=== PATIENT | female | born 1970 | race American Indian/Alaskan Native ===

== ENCOUNTER 2022-02-07 05:54 | Day surgery (SDC) | payer OTHER ==
--- NOTE | 2022-02-06 13:44 | Short Stay Summary ---
Short Stay Documentation Date of service: 02/07/22 Narrative H&P: Past History : 5 Term Births: 5 Living Children: 5 # 1 Delivery date: 1986 Delivery type: # 2 Delivery type: # 3 Delivery type: # 4 Delivery type: # 5 Delivery type: NUTRITIONIST History Operations: Laparoscopic Hysterectomy (2015) (L) salpingectomy Tubal Ligation (R) salpingectomy for ectopic Umbilcal hernia repair Right inguinal hernia repair (12/2020) Dr. Guerrero Abnormal PAP: negative Infection History HIV Risk Eval: no Hx of STD: None Active Medications (reviewed today): estradiol 0.1 mg/24 hr patch weekly (estradiol) Current Allergies (reviewed today): ASPIRIN (Critical) Past Medical History: Reviewed history from 11/23/2021 and no changes required: Lumbar spinal stenosis/arthritis Past Surgical History: Reviewed history from 10/12/2021 and no changes required: Laparoscopic Hysterectomy (2015) (L) salpingectomy Tubal Ligation (R) salpingectomy for ectopic Umbilcal hernia repair Right inguinal hernia repair (12/2020) Dr. Guerrero Family History Summary: Reviewed history Last on 11/23/2021 and no changes required:02/06/2022 Other Family Member - Has No Family History of Uterine Cancer - Entered On: 10/03/2020 Other Family Member - Has No Family History of Small Bowel Cancer - Entered On: 10/03/2020 Other Family Member - Has No Family History of Ovarvian Cancer - Entered On: 10/03/2020 Other Family Member - Has No Family History of Kidney/Urinary Tract Cancer - Entered On: 10/03/2020 Other Family Member - Has No Family History of Spontaneous DVT-PE - Entered On: 10/03/2020 Other Family Member - Has No Family History of Colon Cancer - Entered On: 10/03/2020 Other Family Member - Has No Family History of Brain Cancer - Entered On: 10/03/2020 Other Family Member - Has No Family History of Breast Cancer - Entered On: 10/03/2020 Other Family Member - Has No Family History of Biliary Tract Cancer - Entered On: 10/03/2020 MGM - Has Family History of Pancreatic Cancer - Entered On: 10/03/2020 MGF - Has Family History of Stomach Cancer - Entered On: 10/03/2020 Social History: Reviewed history from 09/01/2020 and no changes required: Patient is Smoking History: Patient has never smoked. Risk Factors: Smoked Tobacco Use: Never smoker Smokeless Tobacco Use: Never HIV High Risk Behavior: no Exercise: yes Times/wk: 7 Type of Exercise: weight training & free weights Seatbelt Use: 100 % Alcohol Use: no Drug Use: no Physical Exam Appearance: well developed, well nourished, no acute distress Other Exams Lungs: no rales, rhonchi, or wheezes Heart: S1, S2, no murmur, rub, or gallop Genitourinary Exam Adnexa: deferred for EUA Impression & Recommendations: Problem # 1: Other ovarian cyst, left side (AGN20-N32.292) Consent reviewed and signed . Possible laparoscopy or laparotomy explained to patient. The risks and alternatives for this surgery were reviewed with the patient. She was informed of possible bleeding, infection, injury to bowel, bladder, ureters or other adjacent organs. The patient was instructed/informed the following: The normal length of hospital stay for this procedure. Nothing to eat or drink after midnight the evening prior to surgery. Pre-op instruction sheets given. Wound care instructions given. Infection precautions reviewed, patient to call for any signs or symptoms of infection. The usual discomforts associated with this procedure were detailed. Proper use of pain medicines was reviewed.She was informed she will be immediately menopausal after her ovaires are removed and may require a chnage in HRT. Discussed use of hormone therapy. Risks reviewed with patient but not limited to:CVA, DE, DVT, PE, Breast cancer, liver problems. Patient counseled that she should use the lowest effective dose of HRT/ERT for the shortest period of time Other options for offered, encouraged to exercise, increase water intake, decrease Na+ and carbohydrate intake. Patient was given ample opportunity to have all her questions answered before signing informed consent. Problem # 2: Pelvic and perineal pain (ICD-789.00) (IWK76-I76.2) Her updated medication list for this problem includes: Estradiol 0.1 Mg/24 Hr Patch Weekly (Estradiol) Medications Added to Medication List This Visit: 1) Estradiol 0.1 Mg/24 Hr Patch Weekly (Estradiol) Patient has been reassessed/reevaluated/re-examined. H&P has been reviewed. No interval changes. - Allergies and Medications Current Medications: Allergies aspirin Allergy (Verified 01/31/22 15:20) Nausea, vomiting, chills latex Allergy (Verified 01/31/22 15:20) Hives Home Medications Medication Instructions Recorded Confirmed Last Taken Type estradioL [Climara 0.1mg/24hr] 0.1 mg TRANSDERMA QWEEK 01/31/22 01/31/22 Unknown History - Brief post op/procedure progress note Date of procedure: 02/07/22 Pre-op diagnosis: pelvic pain, large ovarian cyst Post-op diagnosis: same ((L) ovarian simple cyst, small endometrioma, ? ovarian fibroid. grossly nml right ov) Procedure: RAL(B) oophorectomy Anesthesia: GETA Findings: see above Surgeon: CECE DOTY Hangersmith: SRIRAM HOLT Estimated blood loss: minimal Pathology: list (bilateral ovaries) Specimen disposition: to lab Condition: stable - Hospital course Hospital course: Normal - Disposition Condition at discharge: Good Disposition: 01 HOME / SELF CARE / HOMELESS - Discharge Diagnoses (1) Ovarian cyst Status: Acute (2) Pelvic pain Status: Acute Short Stay Discharge Plan Activity: other (No sex. No driving x3 days. Ambulate approximately 1 mile on her property today. Void frequently. Cough and deep breathe every hour while awake.) Weight Bearing Status: Full Weight Bearing Diet: regular (Eat small meals frequently. Drink approximately 75 ounces of water a day. Avoid spicy, high-fat, high sodium foods.), clear liquids Wound: keep clean and dry Special Instructions: no heavy lifting (Greater than 25 pound) Follow up with: RENNY JOY MD [Primary Care Provider] - 7 Days CECE DOTY MD [Staff Physician] - (As scheduled) Prescriptions: Ibuprofen [Motrin 800 MG tab] 800 mg PO Q8HR PRN #30 tablet PRN Reason: Pain, Moderate (4-6) oxyCODONE /ACETAMINOPHEN [Percocet 5/325 mg] 1 tab PO ONCE PRN #7 tablet PRN Reason: Pain, Moderate (4-6)
[2022-02-07] MEDS ORDERED: MIDAZOLAM 2 MG/2 ML INJ IV NR (06:00)
[2022-02-07] MEDS ORDERED: GABAPENTIN 300 MG CAP PO NR (06:00)
[2022-02-07] MEDS ORDERED: LACTATED RINGERS 1,000 ML IV SCH (06:00)
[2022-02-07] MEDS ORDERED: SCOPOLAMINE TRANSDERMAL PATCH 72 HR TD NR (06:00)
[2022-02-07] MEDS ORDERED: ACETAMINOPHEN 500 MG TAB PO SCH (06:00)
[2022-02-07 07:03] LABS: Hematocrit 35.9 % (30.3-42.9); Hemoglobin 12.5 gm/dl (10.1-14.3); Mean Corpuscular HGB Conc 35 % (30-34); Mean Corpuscular Volume 92 fl (79-97); Platelet Count 210 K/mm3 (140-440); Red Blood Count 3.89 M/mm3 (3.65-5.03); Red Cell Distribution Width 13.2 % (13.2-15.2)
[2022-02-07] MEDS ORDERED: fentaNYL 100 MCG/2 ML INJ ONE ×2 (07:18→09:45)
[2022-02-07] MEDS ORDERED: LIDOCAINE PF 100 MG/5 ML (CARDIAC SYRINGE) IV ONE (07:18)
[2022-02-07] MEDS ORDERED: ROCURONIUM 50 MG/5 ML INJ IV ONE (07:18)
[2022-02-07] MEDS ORDERED: SUCCINYLCHOLINE CHLORIDE 200 MG/10 ML INJ MDV ONE (07:18)
[2022-02-07] MEDS ORDERED: propofoL 200 MG/20 ML VIAL IV ONE (07:19)
[2022-02-07] MEDS ORDERED: BUPIVACAINE/PF (0.5%) 5 MG/1 ML 30 ML VIAL INFILTRATI ONE ×2 (07:38→09:03)
[2022-02-07] MEDS ORDERED: ceFAZolin/Water 2 GM/20 ML 2 GM/20 ML SYRINGE IV ONE (07:38)
[2022-02-07] MEDS ORDERED: ONDANSETRON 4 MG/2 ML INJ IV PRN (07:50)
[2022-02-07] MEDS ORDERED: HYDROmorphone 0.5 MG/0.5 ML INJ IV PRN (07:50)
[2022-02-07] MEDS ORDERED: oxyCODONE /ACETAMINOPHEN 5-325MG TAB PO PRN (07:50)
--- NOTE | 2022-02-07 07:50 | Anesthesia Consultation ---
Anesthesia Consult and Med Hx Date of service: 02/07/22 - Airway Anesthetic Teeth Evaluation: Good ROM Head & Neck: Adequate Mental/Hyoid Distance: Adequate Mallampati Class: Class II Intubation Access Assessment: Probably Good - Pre-Operative Health Status ASA Pre-Surgery Classification: ASA1 Proposed Anesthetic Plan: General - Pulmonary Hx Smoking: No Hx Respiratory Symptoms: No - Cardiovascular System Hx Hypertension: No - Central Nervous System CVA: No - Endocrine Hx Renal Disease: No Hx Liver Disease: No Hx Insulin Dependent Diabetes: No Hx Non-Insulin Dependent Diabetes: No Hx Thyroid Disease: No - Additional Comments Anesthesia Medical History Comments: No hx anesthetic complications.
--- NOTE | 2022-02-07 07:50 | Anesthesia Day of Surgery ---
Anesthesia Day of Surgery - Day of Surgery Patient Examined: Yes Patient H&P Reviewed: Yes Patient is NPO: Yes
[2022-02-07] MEDS ORDERED: ceFAZolin/STERILE WATER 2 GM/20 ML SYRINGE IV NR (08:00)
[2022-02-07] MEDS ORDERED: dexAMETHasone 20 MG/5 ML VIAL ONE (08:14)
[2022-02-07] MEDS ORDERED: ONDANSETRON 4 MG/2 ML INJ ONE (08:14)
[2022-02-07] MEDS ORDERED: SODIUM CHLORIDE 0.9% IRR 1,500 ML BOTTLE IR ONE (09:02)
[2022-02-07] MEDS ORDERED: SODIUM CHLORIDE 0.9% IRRIG SOLN 2000 ML IR ONE (09:03)
[2022-02-07] MEDS ORDERED: KETOROLAC 30 MG/1 ML INJ ONE (09:44)
[2022-02-07] MEDS ORDERED: NEOSTIGMINE 10MG/10 ML INJ MDV ONE (09:48)
[2022-02-07] MEDS ORDERED: GLYCOPYRROLATE 0.4 MG/2 ML INJ ONE (09:48)
[2022-02-07] MEDS ORDERED: LACTATED RINGERS 1,000 ML ONE (09:52)
--- NOTE | 2022-02-07 10:35 | Operative Report ---
Operative Report Operative Report: Date: 02/07/2022 PREOPERATIVE DIAGNOSIS: 1. Ovarian cyst. 2. Pelvic pain POSTOPERATIVE DIAGNOSIS: 1. Left ovarian cyst with endometrioma and possible fibroid NAME OF PROCEDURE: Robotic assisted laparoscopic bilateral oophorectomy SURGEON: Harper Simpson MD BUSINESS DEVELOPMENT ANALYST: Jaida Sebastian MD ANESTHESIA: General endotracheal. SPECIMEN: Left and right ovaries FINDINGS: Grossly normal right ovary, enlarged left ovarian ovary ESTIMATED BLOOD LOSS: Minimal mL. COMPLICATIONS: None. POSTOPERATIVE CONDITION: Good condition to PACU. DESCRIPTION OF PROCEDURE: Patient was taken to the OR and placed in the supine position. General anesthesia was induced and an oral gastric tube was placed. Her neck and head were placed on foam support. Foam eye protection with goggles were secured in place. Then foam face protection was placed and secured. Foam shoulder pads were then positioned on her shoulders for Trendelenburg positioning. She was then placed in dorsolithotomy position. Exam under anesthesia as above. The abdomen and vagina were then prepped and draped in the usual sterile fashion. Timeout was performed. A Mario catheter was inserted into the bladder with drainage of clear yellow urine. Sterile gloves were placed and attention was turned to the abdomen. A 10 mm midline vertical supraumbilical incision was made. A 10/12 mm trocar with the laparoscope and camera attached was introduced through this incision under direct visualization. The abdomen was insufflated. No obvious bowel, bladder, ureteral, or major vascular injury was noted. The patient was then placed in steep Trendelenburg position and the following trochars were placed under direct visualization: 8 mm robotic trochars were placed through incisions made in the bilateral midclavicular lower abdominal region approximately 10 cm lateral to the midline incision, and a 10/12 mm trocar was placed through an incision made in the right lower lateral pelvis. The 10 mm laparoscope was then replaced by a 5 mm laparoscope that was placed through the 10/12 millimeter lateral trocar. The 10/12 mm trocar was then removed and the Lawrence Walter fascial closure device was placed through the incision and a 0 Vicryl was placed through the fascia. Once the suture was secured the 10/12 mm trocar was reintroduced. The same procedure was performed on the lateral trocar site. Once the trochars were in the appropriate positions, the [employer] robot system was engaged. The EndoShears and bipolar device was placed through the 8 mm trochars and positioned then attention was turned to the console. No bowel, bladder, ureteral, or major vascular injury was noted. The pelvic anatomy was inspected. At this point, the decision was made to proceed with removal of both ovaries. The right ovary was attached to high on the pelvic brim. The ureter was visualized medial and away from the operative field. The ovary was elevated and the infundibulopelvic ligament was clamped cauterized and the ovary was excised and placed in Endo Catch bag and removed intact through the 10/12 trocar. Then attention was turned to the left adnexa. The ovary was elevated and the course of the ureter was noted to be away from the operative field. At which point the infundibulopelvic ligament was clamped, cauterized, and incised. The ovary was detached and placed in Endo Catch bag. While in the Endo Catch bag the cyst was aspirated of clear fluid. No obvious spillage of fluid into the abdomen was noted. The remaining of the ovary was incised to debulk to make it easier to deliver through the trocar. At which point chocolate cyst was noted as well as a possible fibroid was released but maintained in the bag. At this point it was determined that the tissue would not be able to be removed through the lateral trocar without rupturing the bag. Decision was made to secure the bag and to disengage the robot. With the bag securely closed, 5 mm laparoscope was placed through the right lateral trocar and the intact specimen was removed through the midline supraumbilical incision. The trocar was reintroduced. The pelvis was copiously irrigated with warm normal saline. Again no bowel, bladder, ureteral or major vascular injury was noted. The 10/12 trochars were then removed. The fascia of both incisions were ligated with the 0 Vicryl sutures that were placed at the beginning of the procedure. The patient was taken out of Trendelenburg position, the abdomen was desufflated, the remaining trochars were removed. Incisions were reapproximated using 4-0 Vicryl in a subcuticular manner. The incisions were infused with half percent Marcaine without epinephrine. Surgiseal was placed over the other incisions. Clear yellow urine was draining into the Mario bag from the bladder at the end of the procedure. Sponge stick was removed. Mario catheter was removed. Counts were correct 3. Patient was taken to recovery room in stable condition. Sponge, lap and needle counts were correct x3. She was taken to recovery room in stable condition.
[2022-02-07 11:16] VITALS: BP 129/71
--- NOTE | 2022-02-07 11:53 | Post Anesthesia Evaluation ---
- Post Anesthesia Evaluation Patient Participated: Yes Airway Patent: Yes Stable Respiratory Function: Yes Nausea/Vomiting: No Temp > 96.8F: Yes Pain Manageable: Yes Adequeate Hydration: Yes Anesthesia Complications: No
== END 2022-02-07 11:55 | disposition home or self-care (01) ==
LOC: OR 05:54 → EDBD 10:00 → OR 11:55
PROVIDERS: ATTEND Obstetrics & Gynecology
DX: N83.201 Unspecified ovarian cyst, right side (principal); N83.202 Unspecified ovarian cyst, left side; M19.90 Unspecified osteoarthritis, unspecified site; R10.2 Pelvic and perineal pain; Z91.040 Latex allergy status; Z88.6 Allergy status to analgesic agent; Z79.899 Other long term (current) drug therapy; Z98.51 Tubal ligation status; Z90.710 Acquired absence of both cervix and uterus; Z72.89 Other problems related to lifestyle; Z98.890 Other specified postprocedural states; Z20.822 Contact with and (suspected) exposure to COVID-19
CPT/HCPCS: 36415; 58661; 85027; 86850; 86900; 86901; 88305; J0330; J0690; J1100; J1170; J1815; J1885; J2001; J2250; J2405; J2704; J2710; J3010; J3490; J7120; U0003